=== PATIENT | male | born 1990 | race Caucasian/White ===

== ENCOUNTER 2017-01-27 18:23 | Emergency (ER) | payer SELFPAY ==
[~2017-01-27] VITALS: Ht 180.3 cm; Wt 119.3 kg
[~2017-01-27 18:23] MED LIST: ACHD5005 PO; AMOX500C2 PO; BUTA-234 PO; CPR500T PO; DESV50TA PO; HYDR1TAB PO; NAPR550T PO; PALI6TAB2 PO
[2017-01-27] MEDS ORDERED: Lyrica (18:51)
[2017-01-27] MEDS ORDERED: RESTORIL (18:51)
[2017-01-27] MEDS ORDERED: HYDROCODONE (18:51)
[2017-01-27] MEDS ORDERED: VALIUM (18:51)
--- NOTE | 2017-01-27 19:01 | ED General ---
General Chief Complaint: General Problems/Pain Stated Complaint: HOT FLASHES,DIZZY,N/V,ANXIETY Nursing Triage Note: PT REPORTS HE HAS BEEN OUT OF HIS PAIN MEDICINE, SLEEP MEDICINE AND ANXIETY PAIN MEDICATION X 1WEEK. PT REPORTS HE STARTED HAVING ANXIETY, SWEATING, N/V, AND SLEEP DEPRIVATION. Nursing Sepsis Screen: No Definite Risk Source of Information: Patient Exam Limitations: No Limitations History of Present Illness Time Seen by Provider: 18:48 Initial Comments Patient presents to ER with chief complaint of approximately 1 week progressively worsening loose stools difficulty sleeping and occasional hot flashes. He states that approximately week ago he ran out of MEDICINE. He routinely takes Restoril daily at bedtime milligram capsules, Valium 1 mg twice a day when necessary anxiety attack and hydrocodone for a orthopedic injury to his right shoulder that is been treated by Drs. Parks's office for the past 2-1 /2 years. He states he only takes the Valium about 1-2 days out of the week. He says he was recently referred from Kasey's office to [facility] because he had a repair but then did not attend to physical therapy and reinjured the right shoulder and has since then been kept in a sling and treated with pain meds by his primary care physician. His primary care physician Dr. John at [facility] recently dismissed him last week because he missed an appointment. He does not have a refill on his medicines and feels that his symptoms may be from withdrawal from his meds. He has not spoke to his previous PCP about refills. He does have an appointment with a new primary care physician on the in approximately one week. Allergies and Home Medications Allergies Coded Allergies: Phenylephrine HCl (Unverified Allergy, Mild, RENAL FAILURE, 09/26/10) Phenylpropanolamine HCl (Unverified Allergy, Mild, RENAL FAILURE, 09/26/10) Phenyltoloxamine (Unverified Allergy, Mild, RENAL FAILURE, 09/26/10) chlorpheniramine (Unverified Allergy, Mild, RENAL FAILURE, 09/26/10) Home Medications [Hydrocodone] , (Reported) [Lyrica] , #60 (Reported) [Restoril] , (Reported) [Valium] , (Reported) Constitutional: No chills, No diaphoresis, No fever, malaise, No weakness EENTM: No blurred vision, No double vision, No eye pain Respiratory: No cough, No short of breath Cardiovascular: No chest pain, No edema Gastrointestinal: No abdominal pain, No constipation, diarrhea, No nausea, No vomiting Genitourinary: No discharge, No dysuria Musculoskeletal: joint pain (chronic right shoulder pain) Skin: No pruritus, No rash Psychiatric/Neurological: Denies Headache, Denies Numbness, Denies Paresthesia Past Cdhbnfo-Tykimj-Ykbvik Hx Patient Social History Alcohol Use: Denies Use Recreational Drug Use: No Smoking Status: Former Smoker Recent Foreign Travel: No Contact w/Someone Who Travel: No Recent Infectious Disease Expo: No Immunizations Up To Date Tetanus Booster (TDap): Less than 5yrs Date of Influenza Vaccine: May 22, 2016 Seasonal Allergies Seasonal Allergies: No Surgeries HX Surgeries: Yes (hernia) Surgeries: Orthopedic Respiratory Hx Respiratory Disorders: No Cardiovascular Hx Cardiac Disorders: No Neurological Hx Neurological Disorders: No Genitourinary Hx Genitourinary Disorders: No Gastrointestinal Hx Gastrointestinal Disorders: No Musculoskeletal Hx Musculoskeletal Disorders: Yes (chronic shoulder pain) Endocrine Hx Endocrine Disorders: No HEENT HX ENT Disorders: No Cancer Hx Cancer: No Psychosocial Hx Psychiatric Problems: No Behavioral Health Disorders: Sleep Difficulties, Anxiety, Depression Integumentary HX Skin/Integumentary Disorder: No Blood Transfusions Hx Blood Disorders: No Physical Exam Vital Signs Vital Sign - Last 12Hours 01/27/17 18:33 Temp 99.2 Pulse 99 Resp 18 B/P (MAP) 150/104 Pulse Ox 99 Capillary Refill : Less Than 3 Seconds General Appearance: No Apparent Distress, WD/WN Eyes: Bilateral Eye EOMI, Bilateral Eye Normal Inspection, Bilateral Eye PERRL HEENT: PERRL/EOMI, Pharynx Normal Neck: Normal Inspection, Supple Respiratory: Normal Breath Sounds, No Accessory Muscle Use Cardiovascular: Regular Rate, Rhythm, No Edema Gastrointestinal: Normal Bowel Sounds, Non Tender, Soft Back: Normal Inspection, No CVA Tenderness Neurologic/Psychiatric: Alert, Oriented x3 Skin: Normal Color, Warm/Dry Progress/Results/Core Measures Results/Orders Vital Signs/I&O Vital Sign - Last 12Hours 01/27/17 18:33 Temp 99.2 Pulse 99 Resp 18 B/P (MAP) 150/104 Pulse Ox 99 Blood Pressure Mean: 119 Progress Note : Time: 18:59 Progress Note Patient appears to be withdrawing from his meds. Timeline matches up. Will not replace his prn benzodiazepines or opiates however I will offer him a substitution of Vistaril and refill his daily Restoril. He can contact his PCP about getting refills for the next 30 days after the dismissal. We will give him enough until he sees his new PCP on the 15th, 1 week. Departure Impression Impression: Primary Impression: General medical exam Disposition: HOME, SELF-CARE Condition: Stable Departure-Patient Inst. Decision time for Depature: 19:00 Referrals: TAMELA MCCORMICK DO (PCP/Family) Primary Care Physician Patient Instructions: Active Range of Motion Exercises, Neck and Shoulders Add. Discharge Instructions: I will send a refill of your Restoril to the pharmacy. Instead of Valium I will send Vistaril 25 mg to be taken 1 capsule every 6 hours as needed for panic attack. This tablet can cause some drowsiness so until you know how to contact affect you you might consider taking a half of a tablet at a time. If you need refills on opiates or benzodiazepines I would suggest that you speak to your prior PCP. Withdrawal from opiates is not dangerous. All discharge instructions reviewed with patient and/or family. Voiced understanding. Scripts Hydroxyzine Pamoate (Vistaril) 25 Mg Capsule 25 MG PO Q6H Y for ANXIETY for 10 Days, #30 CAP 0 Refills Prov: KIRILL LIAO 01/27/17 Temazepam (Restoril) 30 Mg Capsule 30 MG PO HS for 10 Days, #10 CAP 0 Refills Prov: KIRILL LIAO 01/27/17 Copy Copies To 1: TAMELA MCCORMICK TITUS J Jan 27, 2017 19:01
[2017-01-27] MEDS ORDERED: HYDR25CA PO (19:05)
[2017-01-27] MEDS ORDERED: TEMA30CA6 PO (19:05)
[2017-01-27 19:10] VITALS: BP 141/97
--- OUTSIDE RECORDS SUMMARY | 2017-01-28 04:04 | XMS REPORT ---
Author Author RYLEE HODGE [facility] eClinicalWorks Address Unknown Phone Unavailable Care Team Providers Care Vascular Technologist Sonographer Name Role Phone RYLEE HODGE Unavailable Allergies No Known Allergies Problems Problem Type Condition Code Onset Dates Condition Status Problem Insomnia, unspecified type G47.00 Active Problem RLS (restless legs syndrome) G25.81 Active Problem Chest wall pain R07.89 Active Problem Disorder of right rotator cuff M67.911 Active Problem Pain in right shoulder M25.511 Active Medications No Known Medications Results No Known Results Summary Purpose eClinicalWorks Submission
--- OUTSIDE RECORDS SUMMARY | 2017-01-28 04:04 | XMS REPORT ---
Author Author DARYA RAMIREZ Organization eClinicalWorks Address Unknown Phone Unavailable Care Team Providers Care Bleacher Pulp Name Role Phone DARYA RAMIREZ CP Unavailable Allergies No Known Allergies Problems Problem Type Condition Code Onset Dates Condition Status Problem Pain in right shoulder M25.511 Active Problem H. pylori infection A04.8 Active Problem SLAP lesion of right shoulder S43.431A Active Problem Head trauma, initial encounter S09.90XA Active Problem RLS (restless legs syndrome) G25.81 Active Problem Disorder of right rotator cuff M67.911 Active Problem Chest wall pain R07.89 Active Problem Insomnia, unspecified type G47.00 Active Medications Medication Code System Code Instructions Start Date End Date Status Dosage [facility] [address]-91 10 mg Orally Once a day December 18, 2015 1 tablet at bedtime as needed Results No Known Results Summary Purpose eClinicalWorks Submission
--- OUTSIDE RECORDS SUMMARY | 2017-01-28 04:04 | XMS REPORT ---
Author Author DARYA RAMIREZ [facility] Address [address] [place] [address] Care Team Providers Care Pelt Dropper Name Role Phone DARYA RAMIREZ Unavailable PROBLEMS Type Condition ICD9-CM Code [id number] Code Onset Dates Condition Status SNOMED Code Problem Pain in right shoulder M25.511 Active 38467701 Problem RLS (restless legs syndrome) G25.81 Active 94171565 Problem Disorder of right rotator cuff M67.911 Active 652249855 Assessment Major depressive disorder, single episode, unspecified F32.9 Feb, Active 10734202 Assessment SLAP lesion of right shoulder S43.431A Feb, Active Problem Anxiety disorder, unspecified F41.9 Active 361855307 Problem Head trauma, initial encounter S09.90XA Active 30748894 Problem Chest wall pain R07.89 Active 397855015 Problem Insomnia, unspecified type G47.00 Active 266031874 Problem H. pylori infection A04.8 Active 5827559 Problem SLAP lesion of right shoulder S43.431A Active 471956625 ALLERGIES Substance Reaction Event Type Date Status [place] Unknown Non Drug Allergy Feb, Active SOCIAL HISTORY No smoking Hx information available PLAN OF CARE VITAL SIGNS Height 72 in 2016-03-11 Weight 250 lbs 2016-03-11 Heart Rate 89 bpm 2016-03-11 Respiratory Rate 16 2016-03-11 BMI 33.90 kg/m2 2016-03-11 Blood pressure systolic 130 mmHg 2016-03-11 Blood pressure diastolic 70 mmHg 2016-03-11 MEDICATIONS Medication Instructions Dosage Frequency Start Date End Date Duration Status Dicyclomine HCl 10 mg Orally Four times a day 1 capsule 6h October, Active Gabapentin 400 MG Orally Once a day 2 capsule 24h 15 May, 2015 Active Omeprazole 20 mg Orally twice a day 1 tablet 12h Sep, 30 day(s ) Active Xanax 0.5 MG Orally 2 times a day as needed .5- 1 tablet Feb, Active Naprosyn 500 MG Orally 2 times a day 1 tablet as needed 12h 29 Nov, 2015 Active Ambien 10 mg Orally Once a day 1 tablet at bedtime as needed 24h 28 Nov, 2015 Active Hydrocodone-Acetaminophen 7.5-325 MG Orally 3 times a day must last 1 m 1 tablet as needed 22 Nov, 2015 Active Zofran 8 MG Orally 3 times a day as needed n/v 1 tablet Sep, Active Cymbalta 30 MG Orally Twice a day 1 capsule 12h Feb, Active RESULTS No Results PROCEDURES Procedure Date Ordered Related Diagnosis Body Site Office Visit, Est Pt., Level 3 Mar 11, 2016 IMMUNIZATIONS No Known Immunizations
--- OUTSIDE RECORDS SUMMARY | 2017-01-28 04:04 | XMS REPORT ---
Author Author DARYA RAMIREZ Organization eClinicalWorks Address Unknown Phone Unavailable Care Team Providers Care Statistics Teacher Name Role Phone DARYA RAMIREZ CP Unavailable Allergies No Known Allergies Problems Problem Type Condition Code Onset Dates Condition Status Problem Disorder of right rotator cuff M67.911 Active Problem Pain in right shoulder M25.511 Active Problem Head trauma, initial encounter S09.90XA Active Problem H. pylori infection A04.8 Active Problem Anxiety disorder, unspecified F41.9 Active Problem Insomnia, unspecified type G47.00 Active Problem RLS (restless legs syndrome) G25.81 Active Problem SLAP lesion of right shoulder S43.431A Active Problem Chest wall pain R07.89 Active Medications No Known Medications Results No Known Results Summary Purpose eClinicalWorks Submission
--- OUTSIDE RECORDS SUMMARY | 2017-01-28 04:04 | XMS REPORT ---
Author Author DARYA RAMIREZ Organization eClinical[employer] Address Unknown Phone Unavailable Care Team Providers Care Director Auto Name Role Phone DARYA RAMIREZ CP Unavailable Allergies, Adverse Reactions, Alerts Substance Reaction Event Type Cymbalta incd anxiety Drug Allergy [place] Info Not Available Non Drug Allergy Problems Problem Type Condition Code Onset Dates Condition Status Assessment Anxiety disorder, unspecified F41.9 Active Problem Disorder of right rotator cuff M67.911 Active Problem Pain in right shoulder M25.511 Active Assessment Insomnia, unspecified type G47.00 Active Assessment SLAP lesion of right shoulder S43.431A Active Problem Head trauma, initial encounter S09.90XA Active Problem H. pylori infection A04.8 Active Problem Anxiety disorder, unspecified F41.9 Active Problem Insomnia, unspecified type G47.00 Active Problem RLS (restless legs syndrome) G25.81 Active Problem SLAP lesion of right shoulder S43.431A Active Problem Chest wall pain R07.89 Active Medications Medication Code System Code Instructions Start Date End Date Status Dosage Restoril [facility] [address]-36 15 MG Orally Once a day Mar 25, 2016 1 capsule at bedtime as needed Hydrocodone-Acetaminophen [facility] [address]-03 10-325 MG Orally 3 times a day must last 1 m December 12, 2015 1-2 tablet as needed Xanax [facility] [address]-88 0.5 MG Orally 2 times a day as needed Mar 11, 2016 .5- 1 tablet Omeprazole [facility] [address]-22 20 mg Orally twice a day October 03, 2015 1 tablet Procedures Procedure Coding System Code Date Office Visit, Est Pt., Level 3 CPT-4 56746 Mar 25, 2016 Vital Signs Date/Time: Mar 25, 2016 Cardiac Monitoring Heart Rate 76 bpm Weight 247.4 lbs Height 72 in BMI 33.55 Index Blood Pressure Diastolic 82 mmHg Blood Pressure Systolic 124 mmHg Results No Known Results Summary Purpose eClinicalWorks Submission
--- OUTSIDE RECORDS SUMMARY | 2017-01-28 04:04 | XMS REPORT ---
Author Author DARYA RAMIREZ Organization e[employer] Address Unknown Phone Unavailable Care Team Providers Care Textile Supervisor Name Role Phone DARYA RAMIREZ CP Unavailable [...] Problem Insomnia, unspecified type G47.00 Active Medications No Known Medications Results No Known Results Summary Purpose eClinicalWorks Submission
--- OUTSIDE RECORDS SUMMARY | 2017-01-28 04:04 | XMS REPORT ---
Author Author DARYA RAMIREZ [facility] eClinicalWorks Address Unknown Phone Unavailable Care Team Providers Care Senior Interactive Developer Name Role Phone DARYA RAMIREZ CP Unavailable Allergies, Adverse Reactions, Alerts Substance Reaction Event Type [place] Info Not Available Non Drug Allergy Problems Problem Type Condition Code Onset Dates Condition Status Assessment H. pylori infection A04.8 Active Problem SLAP lesion of right shoulder S43.431A Active Problem Chest wall pain R07.89 Active Problem H. pylori infection A04.8 Active Problem Disorder of right rotator cuff M67.911 Active Problem Pain in right shoulder M25.511 Active Problem Insomnia, unspecified type G47.00 Active Problem RLS (restless legs syndrome) G25.81 Active Medications Medication Code System Code Instructions Start Date End Date Status Dosage Gabapentin [facility] [address]-53 400 MG Orally Once a day Jun 05, 2015 2 capsule Ibuprofen [facility] [address]-95 800 MG Orally Three times a day 1 tablet Ambien [facility] [address]-85 10 mg Orally Once a day October 03, 2015 1 tablet at bedtime as needed Omeprazole [facility] [address]-09 20 mg Orally twice a day October 03, 2015 1 tablet [place] [facility] [address]-00 5-325 MG Orally every 6 hrs September 25, 2015 1 tablet as needed Zofran [facility] [address]-13 8 MG Orally 3 times a day as needed n/v October 03, 2015 1 tablet Hydrocodone-Acetaminophen [facility] [address]-54 7.5-325 MG Orally 2 times a day Jun 20, 2015 1 1.5 tablet as needed Clarithromycin [facility] [address]-52 500 MG Orally every 12 hrs October 03, 2015 2015 1 tablet Amoxicillin [facility] [address]-53 500 MG Orally Three times a day September 25, 2015 October 05, 2015 1 capsule Amoxicillin [facility] [address]-11 500 MG Orally every 12 hrs October 03, 2015 2015 2 tablet Procedures Procedure Coding System Code Date IMMUNOASSAY,INFECTIOUS AGENT CPT-4 47326 October 03, 2015 Office Visit, Est Pt., Level 3 CPT-4 09276 October 03, 2015 Vital Signs Date/Time: October 03, 2015 Temperature 97.4 F Weight 256.8 lbs Height 72 in BMI 34.82 Index Blood Pressure Diastolic 76 mmHg Blood Pressure Systolic 120 mmHg Cardiac Monitoring Heart Rate 90 bpm Results Name Result Date Reference Range Unit Abnormality Flag H. PYLORI (IN HOUSE) ----H. PYLORI pos [id number] ----Control + [id number] ----Lot # [id number] ----Exp date [id number] Summary Purpose eClinicalWorks Submission
--- OUTSIDE RECORDS SUMMARY | 2017-01-28 04:04 | XMS REPORT ---
Author Author DARYA RAMIREZ [facility] Address [address] [place] [address] Care Team Providers Care County Attorney Name Role Phone DARYA RAMIREZ Unavailable PROBLEMS Type Condition ICD9-CM Code [id number] Code Onset Dates Condition Status SNOMED Code Problem Pain in right shoulder M25.511 Active 33767216 Problem RLS (restless legs syndrome) G25.81 Active 80986406 Problem Disorder of right rotator cuff M67.911 Active 412607590 Problem Anxiety disorder, unspecified F41.9 Active 388604561 Problem Head trauma, initial encounter S09.90XA Active 01673606 Problem Chest wall pain R07.89 Active 017489540 Problem Insomnia, unspecified type G47.00 Active 176530505 Problem H. pylori infection A04.8 Active 5412333 Problem SLAP lesion of right shoulder S43.431A Active 363969831 ALLERGIES Unknown Allergies SOCIAL HISTORY No smoking Hx information available PLAN OF CARE VITAL SIGNS MEDICATIONS Medication Instructions Dosage Frequency Start Date End Date Duration Status Ambien 10 mg Orally Once a day 1 tablet at bedtime as needed 24h Nov, Active RESULTS No Results PROCEDURES No Known procedures IMMUNIZATIONS No Known Immunizations
--- OUTSIDE RECORDS SUMMARY | 2017-01-28 04:04 | XMS REPORT ---
Author Author DARYA RAMIREZ Organization eClinicalWorks Address Unknown Phone Unavailable Care Team Providers Care Aviation Maintenance Technician Name Role Phone DARYA RAMIREZ CP Unavailable [...]
--- OUTSIDE RECORDS SUMMARY | 2017-01-28 04:04 | XMS REPORT ---
Author Author DARYA RAMIREZ Organization eClinicalWorks Address Unknown Phone Unavailable Care Team Providers Care Director Vaccine Name Role Phone DARYA RAMIREZ CP Unavailable Allergies No Known Allergies Problems Problem Type Condition Code Onset Dates Condition Status Problem SLAP lesion of right shoulder S43.431A Active Problem Chest wall pain R07.89 Active Problem H. pylori infection A04.8 Active Problem Disorder of right rotator cuff M67.911 Active Problem Pain in right shoulder M25.511 Active Problem Insomnia, unspecified type G47.00 Active Problem RLS (restless legs syndrome) G25.81 Active Medications Medication Code System Code Instructions Start Date End Date Status Dosage Hydrocodone-Acetaminophen [facility] [address]-31 7.5-325 MG Orally 2 times a day Jun 20, 2015 1 1.5 tablet as needed Results No Known Results Summary Purpose eClinicalWorks Submission
--- OUTSIDE RECORDS SUMMARY | 2017-01-28 04:04 | XMS REPORT ---
Author Author DARYA RAMIREZ Organization eClinicalWorks Address Unknown Phone Unavailable Care Team Providers Care Education Spec Name Role Phone DARYA RAMIREZ CP Unavailable Allergies, Adverse Reactions, Alerts Substance Reaction Event Type N.K.D.A. Info Not Available Non Drug Allergy Problems Problem Type Condition Code Onset Dates Condition Status Problem Pain in right shoulder M25.511 Active Assessment Disorder of right rotator cuff M67.911 Active Problem Disorder of right rotator cuff M67.911 Active Medications Medication Code System Code Instructions Start Date End Date Status Dosage Ibuprofen [facility] [address]-28 800 MG Orally Three times a day 1 tablet Hydrocodone-Acetaminophen [facility] [address]-80 7.5-325 MG Orally 4 times a day May 09, 2015 1 tablet as needed Procedures Procedure Coding System Code Date Office Visit, Est Pt., Level 3 CPT-4 97899 May 16, 2015 Vital Signs Date/Time: May 16, 2015 Temperature 98.2 F Weight 253 lbs Height 72 in BMI 34.31 Index Blood Pressure Diastolic 78 mmHg Blood Pressure Systolic 128 mmHg Cardiac Monitoring Heart Rate 79 bpm Results No Known Results Summary Purpose eClinicalWorks Submission
--- OUTSIDE RECORDS SUMMARY | 2017-01-28 04:04 | XMS REPORT ---
Author Author DARYA RAMIREZ Organization eClinicalWorks Address Unknown Phone Unavailable Care Team Providers Care Scrummaster Name Role Phone DARYA RAMIREZ CP Unavailable [...] Instructions Start Date End Date Status Dosage Polytrim [facility] [address]-48 18639-2.1 UNIT/ML Ophthalmic 4 times a day October 10, 2015 2015 1 drop into affected eye Results No Known Results Summary Purpose eClinicalWorks Submission
--- OUTSIDE RECORDS SUMMARY | 2017-01-28 04:04 | XMS REPORT ---
Author Author DARYA RAMIREZ Organization eClinicalWorks Address Unknown Phone Unavailable Care Team Providers Care Line Crewman Name Role Phone DARYA RAMIREZ CP Unavailable [...] Instructions Start Date End Date Status Dosage [facility] [address]-04 10 mg Orally Once a day December 18, 2015 1 tablet at bedtime as needed Results No Known Results Summary Purpose eClinicalWorks Submission
--- OUTSIDE RECORDS SUMMARY | 2017-01-28 04:04 | XMS REPORT ---
Author Author DULCE FARRIS [facility] eClinicalWorks Address Unknown Phone Unavailable Care Team Providers Care Visual Effects Editor Name Role Phone DULCE FARRIS Unavailable Allergies No Known Allergies Problems Problem Type Condition Code Onset Dates Condition Status Problem SLAP lesion of right shoulder S43.431A Active Problem Chest wall pain R07.89 Active Problem H. pylori infection A04.8 Active Problem Disorder of right rotator cuff M67.911 Active Problem Pain in right shoulder M25.511 Active Problem Insomnia, unspecified type G47.00 Active Problem RLS (restless legs syndrome) G25.81 Active Medications No Known Medications Results No Known Results Summary Purpose eClinicalWorks Submission
--- OUTSIDE RECORDS SUMMARY | 2017-01-28 04:05 | XMS REPORT ---
Author Author MIKE MARTINEZ [facility] eClinicalWorks Address Unknown Phone Unavailable Care Team Providers Care Healthcare Insurance Sales Agent Name Role Phone MIKE MARTINEZ CP Unavailable Allergies No Known Allergies Problems Problem Type Condition Code Onset Dates Condition Status Problem Pain in right shoulder M25.511 Active Assessment Encounter for dental examination Z01.20 Active Problem Disorder of right rotator cuff M67.911 Active Medications Medication Code System Code Instructions Start Date End Date Status Dosage Metronidazole [facility] [address]-31 500 MG Orally Twice a day May 28, 2015 Jun 04, 2015 1 tablet Drift [facility] [address]-90 7.5-325 MG Orally every 6 hrs May 28, 2015May 1 tablet as needed Procedures Procedure Coding System Code Date Billing Notes on claim CPT-4 EC109 May 28, 2015 Dental no charge CPT-4 D0099 May 28, 2015 Results No Known Results Summary Purpose eClinicalWorks Submission
--- OUTSIDE RECORDS SUMMARY | 2017-01-28 04:05 | XMS REPORT ---
Author Author DARYA RAMIREZ Organization eClinicalWorks Address Unknown Phone Unavailable Care Team Providers Care Business Services Coordinator Name Role Phone DARYA RAMIREZ CP Unavailable [...]
--- OUTSIDE RECORDS SUMMARY | 2017-01-28 04:05 | XMS REPORT ---
Author Author DULCE FARRIS [facility] eClinicalWorks Address Unknown Phone Unavailable Care Team Providers Care Rail Operations Controller Name Role Phone DULCE FARRIS Unavailable Allergies No Known Allergies Problems Problem Type Condition Code Onset Dates Condition Status Problem Insomnia, unspecified type G47.00 Active Problem RLS (restless legs syndrome) G25.81 Active Problem Chest wall pain R07.89 Active Assessment SLAP lesion of right shoulder S43.431A Active Problem Disorder of right rotator cuff M67.911 Active Problem Pain in right shoulder M25.511 Active Medications No Known Medications Procedures Procedure Coding System Code Date DRAIN/INJECT, JOINT/BURSA CPT-4 99553 Jul 05, 2015 DEPO MEDROL 80 MG/ML CPT-4 J1040 Jul 05, 2015 Office Visit, Est Pt., Level 3 CPT-4 48182 Jul 05, 2015 Vital Signs Date/Time: Jul 05, 2015 Blood Pressure Diastolic 88 mmHg Blood Pressure Systolic 132 mmHg Height 72 in Results Name Result Date Reference Range Unit Abnormality Flag JOINT INJECTION-INTERMEDIATE JOINT (specify site) Summary Purpose eClinicalWorks Submission
--- OUTSIDE RECORDS SUMMARY | 2017-01-28 04:05 | XMS REPORT ---
Author Author DARYA RAMIREZ Organization eClinicalWorks Address Unknown Phone Unavailable Care Team Providers Care Projection Technician Name Role Phone DARYA RAMIREZ CP Unavailable Allergies, Adverse Reactions, Alerts Substance Reaction Event Type Naldacon Info Not Available Non Drug Allergy Problems Problem Type Condition Code Onset Dates Condition Status Problem RLS (restless legs syndrome) G25.81 Active Problem Disorder of right rotator cuff M67.911 Active Problem Insomnia, unspecified type G47.00 Active Assessment Pain in right shoulder M25.511 Active Assessment Insomnia, unspecified type G47.00 Active Problem Pain in right shoulder M25.511 Active Assessment RLS (restless legs syndrome) G25.81 Active Medications Medication Code System Code Instructions Start Date End Date Status Dosage Hydrocodone-Acetaminophen [facility] [address]-28 5-325 MG Orally 3 times a day Jun 20, 2015 1 tablet as needed Seroquel [facility] [address]-67 25 MG Orally Once a day Jun 20, 2015 1 tablet Gabapentin [facility] [address]-94 400 MG Orally Once a day Jun 05, 2015 1 capsule Procedures Procedure Coding System Code Date Office Visit, Est Pt., Level 3 CPT-4 57062 Jun 20, 2015 Vital Signs Date/Time: Jun 20, 2015 Temperature 98.2 F Weight 260 lbs Height 72 in BMI 35.26 Index Blood Pressure Diastolic 72 mmHg Blood Pressure Systolic 120 mmHg Cardiac Monitoring Heart Rate 82 bpm Results No Known Results Summary Purpose eClinicalWorks Submission
--- OUTSIDE RECORDS SUMMARY | 2017-01-28 04:05 | XMS REPORT ---
Author Author DARYA RAMIREZ Organization eClinicalWorks Address Unknown Phone Unavailable Care Team Providers Care Housekeeping Worker Name Role Phone DARYA RAMIREZ CP Unavailable [...]
--- OUTSIDE RECORDS SUMMARY | 2017-01-28 04:05 | XMS REPORT ---
Author Author DARYA RAMIREZ [facility] Address [address] [place] [address] Care Team Providers Care Senior Communications Engineer Name Role Phone DARYA RAMIREZ Unavailable PROBLEMS Type Condition ICD9-CM Code [id number] Code Onset Dates Condition Status SNOMED Code Problem Pain in right shoulder M25.511 Active 56299780 Problem RLS (restless legs syndrome) G25.81 Active 53853567 Problem Disorder of right rotator cuff M67.911 Active 234735891 Assessment Bronchitis J40 Apr, Active 39824815 Problem Anxiety disorder, unspecified F41.9 Active 068700930 Problem Head trauma, initial encounter S09.90XA Active 08343619 Problem Chest wall pain R07.89 Active 340731871 Problem Insomnia, unspecified type G47.00 Active 980913840 Problem H. pylori infection A04.8 Active 3531705 Problem SLAP lesion of right shoulder S43.431A Active 427839507 ALLERGIES Substance Reaction Event Type Date Status Promethazine HCl itching Drug Allergy Apr, Active Cymbalta incd anxiety Drug Allergy Apr, Active Naldacon Unknown Non Drug Allergy Apr, Active SOCIAL HISTORY No smoking Hx information available PLAN OF CARE VITAL SIGNS Height 72 in 2016-05-19 Weight 262.8 lbs 2016-05-19 Heart Rate 101 bpm 2016-05-19 Respiratory Rate 16 2016-05-19 BMI 35.64 kg/m2 2016-05-19 Blood pressure systolic 128 mmHg 2016-05-19 Blood pressure diastolic 70 mmHg 2016-05-19 MEDICATIONS Medication Instructions Dosage Frequency Start Date End Date Duration Status PredniSONE 10 mg Orally Once a day 2tablet with food or milk 24h Apr, May, 05 days Active Zithromax Z-Vikram 250 MG Orally Once a day 2 tab d 1 then 1 tab qd 24h Apr, May, 05 days Active Hydrocodone-Acetaminophen 10-325 MG Orally 3 times a day must last 1 m 1-2 tablet as needed Nov, Active Xanax 1 MG Orally 1 times a day as needed .5-1 tablet Feb, Active Omeprazole 20 mg Orally twice a day 1 tablet 12h Sep, 30 day(s ) Active Restoril 30 MG Orally Once a day 1 capsule at bedtime as needed 24h Mar Active Benzonatate 200 mg Orally Three times a day 1 capsule 8h Apr, Active Hycodan 5-1.5 MG/5ML Orally 2 times a day 5 ml as needed for severe cough 12h Apr, Active Gabapentin 400 MG Orally Once a day at hs 1 capsule Apr, Active RESULTS No Results PROCEDURES Procedure Date Ordered Related Diagnosis Body Site Office Visit, Est Pt., Level 3 May 19, 2016 IMMUNIZATIONS No Known Immunizations
--- OUTSIDE RECORDS SUMMARY | 2017-01-28 04:06 | XMS REPORT ---
Author Author DARYA RAMIREZ Organization eClinicalWorks Address Unknown Phone Unavailable Care Team Providers Care Airport Driver Name Role Phone DARYA RAMIREZ CP Unavailable Allergies, Adverse Reactions, Alerts Substance Reaction Event Type N[place] Info Not Available Non Drug Allergy Problems Problem Type Condition Code Onset Dates Condition Status Assessment Insomnia, unspecified type G47.00 Active Problem Chest wall pain R07.89 Active Problem Insomnia, unspecified type G47.00 Active Problem SLAP lesion of right shoulder S43.431A Active Problem Pain in right shoulder M25.511 Active Assessment SLAP lesion of right shoulder S43.431A Active Problem RLS (restless legs syndrome) G25.81 Active Problem Disorder of right rotator cuff M67.911 Active Medications Medication Code System Code Instructions Start Date End Date Status Dosage Diclofenac Sodium [facility] [address]-77 75 MG Orally Twice a day Jul 02, 2015 1 tablet Gabapentin [facility] [address]-69 400 MG Orally Once a day Jun 05, 2015 1 capsule Seroquel [facility] [address]-79 50 MG Orally Once a day Jun 20, 2015 1 tablet Hydrocodone-Acetaminophen [facility] [address]-23 5-325 MG Orally 3 times a day Jun 20, 2015 1 tablet as needed Procedures Procedure Coding System Code Date Office Visit, Est Pt., Level 3 CPT-4 25353 Jul 10, 2015 Vital Signs Date/Time: Jul 10, 2015 Temperature 97.8 F Weight 265.8 lbs Height 72 in BMI 36.05 Index Blood Pressure Diastolic 68 mmHg Blood Pressure Systolic 124 mmHg Cardiac Monitoring Heart Rate 68 bpm Results No Known Results Summary Purpose eClinicalWorks Submission
--- OUTSIDE RECORDS SUMMARY | 2017-01-28 04:06 | XMS REPORT ---
Author Author DARYA RAMIREZ Organization eClinicalWorks Address Unknown Phone Unavailable Care Team Providers Care Mannequin Refinisher Name Role Phone DARYA RAMIREZ CP Unavailable Allergies, Adverse Reactions, Alerts Substance Reaction Event Type N.K.D.A. Info Not Available Non Drug Allergy Problems Problem Type Condition Code Onset Dates Condition Status Assessment Pain in right shoulder M25.511 Active Problem Pain in right shoulder M25.511 Active Medications Medication Code System Code Instructions Start Date End Date Status Dosage Hydrocodone-Acetaminophen [facility] [address]-23 5-325 MG Orally every 6 hrs May 09, 2015 1 tablet as needed Ibuprofen [facility] [address]-01 800 MG Orally Three times a day 1 tablet Procedures Procedure Coding System Code Date ASSAY OF MAGNESIUM CPT-4 43660 May 09, 2015 C-REACTIVE PROTEIN CPT-4 78564 May 09, 2015 Office Visit, New Pt., Level 2 CPT-4 15085 May 09, 2015 RHEUMATOID FACTOR, QUANT CPT-4 79984 May 09, 2015 ANTINUCLEAR ANTIBODIES CPT-4 33821 May 09, 2015 VENIPUNCT, ROUTINE* CPT-4 64433 May 09, 2015 RBC SED RATE, AUTOMATED CPT-4 91709 May 09, 2015 Vital Signs Date/Time: May 09, 2015 Temperature 97.8 F Weight 258.8 lbs Height 72 in BMI 35.10 Index Blood Pressure Diastolic 100 mmHg Blood Pressure Systolic 126 mmHg Cardiac Monitoring Heart Rate 76 bpm Results Name Result Date Reference Range Unit Abnormality Flag ROUTINE VENIPUNCTURE MONA ANALYZER Summary Purpose eClinicalWorks Submission
--- OUTSIDE RECORDS SUMMARY | 2017-01-28 04:06 | XMS REPORT ---
Author Author DARYA RAMIREZ Organization eClinicalWorks Address Unknown Phone Unavailable Care Team Providers Care Data Manager Name Role Phone DARYA RAMIREZ CP Unavailable Allergies, Adverse Reactions, Alerts Substance Reaction Event Type N[place]acon Info Not Available Non Drug Allergy Problems Problem Type Condition Code Onset Dates Condition Status Problem Disorder of right rotator cuff M67.911 Active Problem Pain in right shoulder M25.511 Active Problem RLS (restless legs syndrome) G25.81 Active Assessment RLS (restless legs syndrome) G25.81 Active Assessment Pain in right shoulder M25.511 Active Medications Medication Code System Code Instructions Start Date End Date Status Dosage Tramadol HCl [facility] [address]-82 50 MG Orally 3 times a day Jun 05, 2015 1-2 tablet as needed Gabapentin [facility] [address]-83 400 MG Orally Once a day Jun 05, 2015 1 capsule Procedures Procedure Coding System Code Date Office Visit, Est Pt., Level 3 CPT-4 02498 Jun 05, 2015 Vital Signs Date/Time: Jun 05, 2015 Temperature 98.2 F Weight 260.0 lbs Height 72 in BMI 35.26 Index Blood Pressure Diastolic 78 mmHg Blood Pressure Systolic 134 mmHg Cardiac Monitoring Heart Rate 72 bpm Results No Known Results Summary Purpose eClinicalWorks Submission
--- OUTSIDE RECORDS SUMMARY | 2017-01-28 04:06 | XMS REPORT ---
Author Author DARYA RAMIREZ Organization eClinicalWorks Address Unknown Phone Unavailable Care Team Providers Care Family Psychologist Name Role Phone DARYA RAMIREZ CP Unavailable [...]
--- OUTSIDE RECORDS SUMMARY | 2017-01-28 04:06 | XMS REPORT ---
Author Author DARYA RAMIREZ Organization eClinicalWorks Address Unknown Phone Unavailable Care Team Providers Care Fence Supervisor Name Role Phone DARYA RAMIREZ CP Unavailable Allergies No Known Allergies Problems Problem Type Condition Code Onset Dates Condition Status Assessment Pain in right shoulder M25.511 Active Problem Pain in right shoulder M25.511 Active Medications No Known Medications Procedures Procedure Coding System Code Date X-RAY EXAM OF SHOULDER CPT-4 84871 May 10, 2015 Results No Known Results Summary Purpose eClinicalWorks Submission
--- OUTSIDE RECORDS SUMMARY | 2017-01-28 04:06 | XMS REPORT ---
Author Author MIKE MARTINEZ Organization eClinicalWorks Address Unknown Phone Unavailable Care Team Providers Care Recording Studio Set Up Worker Name Role Phone MIKE MARTINEZ CP Unavailable Allergies, Adverse Reactions, Alerts Substance Reaction Event Type N[place]acon Info Not Available Non Drug Allergy Problems Problem Type Condition Code Onset Dates Condition Status Problem Pain in right shoulder M25.511 Active Assessment Encounter for dental examination Z01.20 Active Problem Disorder of right rotator cuff M67.911 Active Assessment Dental examination Z01.20 Active Assessment Dental caries, unspecified K02.9 Active Medications Medication Code System Code Instructions Start Date End Date Status Dosage [place] [facility] [address]-92 5-325 MG Orally every 6 hrs May 24, 2015 1 tablet as needed Amoxicillin [facility] [address]-98 500 MG Orally Three times a day May 24, 2015 Jun 03, 2015 1 capsule Procedures Procedure Coding System Code Date INTRAORL-PERIAPICAL 1 FILM 89893 CPT-4 D0220 May 24, 2015 SURG REMOVAL ERUPTED TOOTH CPT-4 D7210 May 24, 2015 LTD ORAL EVALUATION - PROBLEM FOCUS CPT-4 D0140 May 24, 2015 Vital Signs Date/Time: May 24, 2015 Blood Pressure Diastolic 88 mmHg Blood Pressure Systolic 135 mmHg Cardiac Monitoring Heart Rate 76 bpm Results No Known Results Summary Purpose eClinicalWorks Submission
--- OUTSIDE RECORDS SUMMARY | 2017-01-28 04:06 | XMS REPORT ---
Author Author DARYA RAMIREZ Organization eClinicalWorks Address Unknown Phone Unavailable Care Team Providers Care Gear Machine Operator General Name Role Phone DARYA RAMIREZ CP Unavailable [...]
--- OUTSIDE RECORDS SUMMARY | 2017-01-28 04:06 | XMS REPORT ---
Author Author DARYA RAMIREZ Organization eClinicalWorks Address Unknown Phone Unavailable Care Team Providers Care Frit Mixer Name Role Phone DARYA RAMIREZ CP Unavailable Allergies, Adverse Reactions, Alerts Substance Reaction Event Type N[place]acon Info Not Available Non Drug Allergy Problems Problem Type Condition Code Onset Dates Condition Status Problem Insomnia, unspecified type G47.00 Active Problem RLS (restless legs syndrome) G25.81 Active Problem Chest wall pain R07.89 Active Assessment Chest wall pain R07.89 Active Problem Disorder of right rotator cuff M67.911 Active Problem Pain in right shoulder M25.511 Active Medications Medication Code System Code Instructions Start Date End Date Status Dosage Diclofenac Sodium [facility] [address]-13 75 MG Orally Twice a day Jul 02, 2015 Aug 01, 2015 1 tablet Hydrocodone-Acetaminophen [facility] [address]-77 5-325 MG Orally 3 times a day Jun 20, 2015 1 tablet as needed Gabapentin [facility] [address]-22 400 MG Orally Once a day Jun 05, 2015 1 capsule Seroquel [facility] [address]-96 25 MG Orally Once a day Jun 20, 2015 1 tablet Procedures Procedure Coding System Code Date Office Visit, Est Pt., Level 3 CPT-4 90753 Jul 02, 2015 MEASURE BLOOD OXYGEN LEVEL CPT-4 95660 Jul 02, 2015 Vital Signs Date/Time: Jul 02, 2015 Temperature 98 F Weight 264.3 lbs Height 72 in Oximetry 96 % Blood Pressure Diastolic 90 mmHg Blood Pressure Systolic 132 mmHg Cardiac Monitoring Heart Rate 67 bpm BMI 35.84 Index Results No Known Results Summary Purpose eClinicalWorks Submission
--- OUTSIDE RECORDS SUMMARY | 2017-01-28 04:06 | XMS REPORT ---
Author Author DARYA RAMIREZ Organization eClinicalWorks Address Unknown Phone Unavailable Care Team Providers Care Branch Lending Manager Name Role Phone DARYA RAMIREZ CP Unavailable Allergies No Known Allergies Problems Problem Type Condition Code Onset Dates Condition Status Assessment SLAP lesion of right shoulder S43.431A Active Problem Disorder of right rotator cuff M67.911 Active Problem Pain in right shoulder M25.511 Active Assessment Anxiety disorder, unspecified F41.9 Active Problem Head trauma, initial encounter S09.90XA Active Problem H. pylori infection A04.8 Active Problem Anxiety disorder, unspecified F41.9 Active Problem Insomnia, unspecified type G47.00 Active Problem RLS (restless legs syndrome) G25.81 Active Problem SLAP lesion of right shoulder S43.431A Active Problem Chest wall pain R07.89 Active Medications Medication Code System Code Instructions Start Date End Date Status Dosage Restoril [facility] [address]-37 30 MG Orally Once a day Mar 25, 2016 1 capsule at bedtime as needed Hydrocodone-Acetaminophen [facility] [address]-33 10-325 MG Orally 3 times a day must last 1 m December 12, 2015 1-2 tablet as needed Results No Known Results Summary Purpose eClinicalWorks Submission
== END 2017-01-27 19:10 | disposition home or self-care (01) ==
LOC: EDUNIT# 18:23 → ER 18:27
DX: R19.5 Other fecal abnormalities (principal); G47.00 Insomnia, unspecified; F41.9 Anxiety disorder, unspecified; F32.9 Major depressive disorder, single episode, unspecified; Z87.891 Personal history of nicotine dependence; Z87.19 Personal history of other diseases of the digestive system
CPT/HCPCS: 99281